=== PATIENT | female | born 1965 | race Asian ===

== ENCOUNTER 2019-02-12 08:31 | Day surgery (SDC) | payer OTHER ==
[2019-02-12] MEDS ORDERED: MIDAZOLAM 1 MG/ML 2 ML INJ (12:17)
[2019-02-12] MEDS ORDERED: FENTAnyl 50 MCG/ML VIAL (12:17)
== END 2019-02-12 14:06 | disposition home or self-care (01) ==
LOC: GIL 08:31
DX: K92.1 Melena (principal); K64.8 Other hemorrhoids
CPT/HCPCS: 45378